=== PATIENT | male | born 1950 ===

== ENCOUNTER 2024-02-12 09:35 | Day surgery (SDC) | payer OTHER ==
[2024-02-05 11:42] LABS: HEMATOCRIT 43.2 % (39.0-48.0); HEMOGLOBIN 14.6 g/dL (13-16.00); MEAN CELL VOLUME 99.1 fL (80.0-100.00); MEAN CORPUSCULAR HEMOGLOBIN 33.5 pg (27.00-32.0); MEAN CORPUSCULAR HGB CONC 33.8 g/dl (32.0-36.0); PLATELET COUNT 182 K/uL (150-450); RED BLOOD COUNT 4.36 M/uL (4.00-6.00); RED CELL DISTRIBUTION WIDTH 14.5 % (11.5-14.5)
[2024-02-05 11:46] LABS: PH,URINE 6.5 (5.0-8.0); URINE APPEARANCE Clear; URINE BILIRRUBIN Negative (NEGATIVE); URINE BLOOD Moderate; URINE COLOR Yellow; URINE GLUCOSE Negative (NEGATIVE); URINE LEUKOCYTE Negative; URINE NITRATE Negative; URINE PROTEIN Negative (NEGATIVE)
[2024-02-05 11:52] LABS: URINE EPITHELIAL CELLS 7.1 uL (0.0-38.8); URINE RBC 262.2 uL (0.0-20.8); URINE WBC 19.7 uL (0.0-23.2)
[2024-02-05 12:09] LABS: ALBUMIN 3.7 gm/dL (3.4-5.0); BILIRUBIN TOTAL 0.79 mg/dL (0.3-1.2); CALCIUM 9.3 mg/dL (8.5-10.1); CREATININE SERUM 0.83 mg/dL (0.70-1.30); GFR 90.57; GLOBULINA 3.4 G/DL (2.4-3.5); POTASSIUM 4.16 mEq/L (3.5-5.1); TOTAL PROTEIN 7.1 gm/dL (6.4-8.2)
[2024-02-05 12:10] LABS: INR 1.1; PARTIAL THROMBOPLASTIN TIME 28.5 SECONDS (22.0-34.0); PROTHROMBIN TIME 11.5 SECONDS (9.0-11.5)
[~2024-02-12] VITALS: Ht 167.6 cm; Wt 94.3 kg
[~2024-02-12 09:35] MED LIST: ENALAPRIL MALEA10 MG PO; METFORMIN HCL1000 M2 PO; PENTOXIFYLLINE400 MG PO; ZESTRIL10 M1 PO
[2024-02-12] MEDS ORDERED: CEFAZOLIN SODIUM 1,000 MG VIAL ONE (11:31)
[2024-02-12] MEDS ORDERED: KETOROLAC TROMETHAMINE 30 MG VIAL ONE (11:31)
[2024-02-12] MEDS ORDERED: BUPIVACAINE HCL/PF 0.5% 30ML ML ONE (11:31)
[2024-02-12] MEDS ORDERED: LIDOCAINE HCL 1%/Epi 20ML VIAL IJ ONE ×2 (11:31→12:00)
[2024-02-12] MEDS ORDERED: LIDOCAINE HCL 1% 200MG/20ML VIAL IJ ONE (11:31)
[2024-02-12] MEDS ORDERED: KETOROLAC TROMETHAMINE 30 MG VIAL IJ ONE (12:00)
[2024-02-12] MEDS ORDERED: BUPIVACAINE HCL/PF 0.5% 30ML ML IJ ONE (12:00)
[2024-02-12] MEDS ORDERED: KETOROLAC TROMETHAMINE 30 MG VIAL IV ONE (12:00)
[2024-02-12] MEDS ORDERED: CEFAZOLIN SODIUM 1,000 MG VIAL IV ONE (12:00)
[2024-02-12] MEDS ORDERED: ENALAPRILAT DIHYDRATE 2.5 MG/2 ML VIAL IV ONE (14:37)
[2024-02-12] MEDS ORDERED: hydrALAZINE HCL 20 MG VIAL ONE (16:11)
== END 2024-02-12 17:45 | disposition home or self-care (01) ==
LOC: CIR.AMB 09:35
PROVIDERS: ATTEND Orthopaedic Surgery
DX: M75.121 Complete rotator cuff tear or rupture of right shoulder, not specified as traumatic (principal); M24.111 Other articular cartilage disorders, right shoulder; M75.21 Bicipital tendinitis, right shoulder